=== PATIENT | female | born 1960 | race Caucasian/White ===

== ENCOUNTER 2021-08-21 07:20 | Day surgery (SDC) | payer OTHER ==
[2021-08-21] VITALS (196 sets, daily range): BP systolic 88–161; BP diastolic 50–121
[~2021-08-21] VITALS: Ht 165.1 cm; Wt 69.0 kg
[2021-08-21 08:29] LABS: HEMATOCRIT 40.6 % (37.0-47.0); IMMATURE GRANULOCYTES 0.2 % (0.0-5.0); MEAN CELL VOLUME 93.3 fL CALC (80.0-100.0); MEAN CORPUSCULAR HGB 29.9 pG CALC (26.0-32.0); NEUT# 2.89 thou/uL (2.00-7.15); RED BLOOD COUNT 4.35 mill/uL (4.20-5.60); RED CELL DISTRI WIDTH 13.3 % (11.5-15.5)
[2021-08-21 09:38] LABS: ALBUMIN 4.1 g/dL (3.2-5.0); ALKALINE PHOSPHATASE 74 u/l (38-126); ANION GAP 8 (6-22 (CALC)); BILIRUBIN, TOTAL 0.3 mg/dL (0.0-1.4); BUN 11 mg/dL (7-17); BUN/CREATININE RATIO 17 (12-20 (CALC)); CARBON DIOXIDE 27 mmol/l (22-30); CHLORIDE 106 mmol/l (95-108); CREATININE 0.6 mg/dL (0.5-1.0); GFR FOR AFR.AMER. > 60 ML/MIN (>=60 (CALC)); GFR OTHER RACES > 60 ML/MIN (>=60 (CALC)); POTASSIUM 3.9 mmol/l (3.5-5.1); SGOT/AST 25 u/l (14-36); SODIUM 137 mmol/l (137-146); TOTAL PROTEIN 6.7 g/dL (6.3-8.2)
[2021-08-21] MEDS ORDERED: NALTREXONE50 MG PO (17:01)
[2021-08-21] MEDS ORDERED: CLONIDINE0.1 MG PO (17:02)
[2021-08-21] MEDS ORDERED: KLONOPIN2 MG PO (17:02)
[2021-08-22 04:20] VITALS: BP 137/82
[2021-08-22 05:21] LABS: HEMATOCRIT 42.7 % (37.0-47.0); IMMATURE GRANULOCYTES 0.3 % (0.0-5.0); MEAN CELL VOLUME 89.1 fL CALC (80.0-100.0); MEAN CORPUSCULAR HGB 29.2 pG CALC (26.0-32.0); MEAN CORPUSCULAR HGB CONC 32.8 g/dL CAL (32.0-36.0); NEUT# 9.58 thou/uL (2.00-7.15); RED BLOOD COUNT 4.79 mill/uL (4.20-5.60)
[2021-08-22 05:37] LABS: ALBUMIN 3.8 g/dL (3.2-5.0); ALKALINE PHOSPHATASE 80 u/l (38-126); ANION GAP 10 (6-22 (CALC)); BILIRUBIN, TOTAL 0.4 mg/dL (0.0-1.4); BUN 7 mg/dL (7-17); BUN/CREATININE RATIO 12 (12-20 (CALC)); CARBON DIOXIDE 22 mmol/l (22-30); CHLORIDE 107 mmol/l (95-108); CREATININE 0.5 mg/dL (0.5-1.0); GFR FOR AFR.AMER. > 60 ML/MIN (>=60 (CALC)); GFR OTHER RACES > 60 ML/MIN (>=60 (CALC)); MAGNESIUM 2.1 mg/dL (1.6-2.3); SGOT/AST 24 u/l (14-36); SODIUM 135 mmol/l (137-146); TOTAL PROTEIN 6.1 g/dL (6.3-8.2)
[2021-08-22 07:44] VITALS: BP 137/82
[2021-08-22 07:51] VITALS: BP 145/56
[2021-08-22 12:02] VITALS: BP 115/68
== END 2021-08-22 15:53 | disposition home or self-care (01) | DRG 897 ==
LOC: ANR 07:20 → MS2 07:21 → ANR 14:44
PROVIDERS: ATTEND Anesthesiology
DX: F11.20 Opioid dependence, uncomplicated (principal)
CPT/HCPCS: J2354